=== PATIENT | female | born 1955 | race African-American/Black ===

== ENCOUNTER 2025-05-23 08:01 | Day surgery (SDC) | payer MEDICARE ==
[2025-05-20 10:53] VITALS: BMI 31.6
[2025-05-23 08:55] LABS: INR-International Normal Ratio 1.2; Prothrombin Time 14.9 sec (12.0-14.7)
[2025-05-23 08:56] LABS: PTT 24.2 sec (22.9-36.1)
[2025-05-23] MEDS ORDERED: LevoFLOXacin D5W 500 mg (100 mL) BAG ONE (09:31)
[2025-05-23] MEDS ORDERED: Rocuronium Bromide 10 MG/ML (10ML VIAL) ONE ×2 (09:46→10:08)
[2025-05-23] MEDS ORDERED: fentaNYL PF 100 MCG/2 ML SYRINGE ONE (09:46)
[2025-05-23] MEDS ORDERED: PROPOFOL 20 ML ONE (09:46)
[2025-05-23] MEDS ORDERED: PROPOFOL 200 MG/20 ML VIAL ONE (10:08)
[2025-05-23] MEDS ORDERED: Ketorolac Tromethamine 30 MG (1 mL) VIAL ONE ×2 (10:08→10:53)
[2025-05-23] MEDS ORDERED: Ondansetron PF 4 MG/2 ML Vial ONE (10:16)
[2025-05-23] MEDS ORDERED: SUGAMMADEX SODIUM 200 MG/2 ML VIAL ONE (10:24)
[2025-05-23] MEDS ORDERED: HYDROmorphone 0.5 MG/0.5 ML SYRINGE ONE (11:19)
[2025-05-23] MEDS ORDERED: Oxybutynin 5 MG TAB ONE (11:19)
== END 2025-05-23 15:15 | disposition home or self-care (01) ==
LOC: SDC 08:01
PROVIDERS: ATTEND Urology
PROC: 0T768DZ Dilation of Right Ureter with Intraluminal Device, Via Natural or Artificial Opening Endoscopic (ICD-10-PCS; principal; 2025-05-23)
DX: N20.0 Calculus of kidney (principal); I10 Essential (primary) hypertension; Z88.2 Allergy status to sulfonamides
CPT/HCPCS: 74420; 82365; 85610; 85730; C1747; C1758; C1769 ×2; C2617; C9761; J1100; J1171; J1885; J1956; J2405; J2704; Q9967; 88300